=== PATIENT | female | born 1965 | race Caucasian/White ===

== ENCOUNTER 2017-01-09 11:07 | Emergency (ER) | payer SELFPAY ==
[~2017-01-09] VITALS: Ht 172.7 cm; Wt 74.7 kg
[2017-01-09 12:22] LABS: BASOPHIL COUNT 0.1 K/uL (0-0.1); EOSINOPHIL (%) 1.7 % (0-5); EOSINOPHIL COUNT 0.1 K/uL (0-0.3); HEMATOCRIT 42.2 % (36.0-46.0); IMMATURE GRANULOCYTE (%) 0.9 % (0.0-0.7); IMMATURE GRANULOCYTE COUNT 0.1 K/uL; INSTRUMENT ABS NEUTROPHIL CT 4.5 K/uL; LYMPHOCYTE COUNT 1.1 K/uL (1.0-2.8); MCH 28.3 PG (29.0-34.0); MCHC 32.9 G/DL (30.0-36.0); MCV 85.8 FL (83-99); MEAN PLAT.VOLUME 10.4 uM^3 (9.5-12.4); MONOCYTE (%) 8.4 % (3-12); MONOCYTE COUNT 0.5 K/uL (0-0.8); NEUTROPHIL (%) 70.6 % (45-76); NEUTROPHIL COUNT 4.5 K/uL (1.8-6.4); PLATELET COUNT 351 K/uL (156-360); RBC DIS.WIDTH-CV 14.4 % (11.8-14.6); RBC DIS.WIDTH-SD 44.8 % (39-53); RED BLOOD COUNT 4.92 M/uL (3.80-5.20); WHITE BLOOD COUNT 6.4 K/uL (4.1-10.2)
[2017-01-09 12:28] LABS: CHLORIDE 104 mEq/L (99-109); INTER. NORMALIZED RATIO 1.1; POTASSIUM 3.5 mEq/L (3.7-5.4); PROTHROMBIN TIME 11.7 SEC (10.2-12.9); SODIUM 138 mEq/L (136-147)
[2017-01-09 12:30] LABS: GLUCOSE 94 mg/dL (70-99)
[2017-01-09 12:31] LABS: ANION GAP 11 MEQ/L (2-14); PTT 27.6 SEC (25-37)
[2017-01-09 12:32] LABS: TOTAL BILIRUBIN 14.7 mg/dL (0.0-1.0)
[2017-01-09 12:34] LABS: ALKALINE PHOSPHATASE 133 IU/L (3-129); GFR ESTIMATE (CALCULATED) > 59 mL/min/
[2017-01-09 12:35] LABS: UREA NITROGEN (BUN) 8 mg/dL (9-23)
[2017-01-09 12:37] LABS: LIPASE 16 U/L (1.0-51.0)
[2017-01-09 13:21] LABS: ADD MIUA? YES; BILIRUBIN MODERATE; BLOOD MODERATE; COLOR AMBER ((YELLOW)); GLUCOSE (STRIP) NEGATIVE; KETONES 20; LEUKOCYTES SMALL; NITRITE NEGATIVE; PROTEIN (STRIP) 30; SPECIFIC GRAVITY 1.021 (1.000-1.030)
[2017-01-09 13:42] LABS: BACTERIA RARE /HPF; CALCIUM OXALATE CRYSTALS 3+ /HPF; EPITHELIAL CELLS 2+ /HPF; MUCUS 2+ /LPF; WHITE BLOOD CELLS 15-20 /HPF (0-5)
[2017-01-09 14:00] LABS: ICTOTEST POSITIVE
[2017-01-09 14:39] LABS: SERUM ETHYL ALCOHOL < 10 mg/dL
[2017-01-09 14:42] LABS: SALICYLATE < 5.0 MG/DL (15-30)
[2017-01-09 20:59] VITALS: BP 133/88
== END 2017-01-09 22:03 | disposition short-term general hospital (02) ==
LOC: EME 11:07
PROVIDERS: Physician Assistant
DX: R17 Unspecified jaundice (principal); K80.21 Calculus of gallbladder without cholecystitis with obstruction; R74.0 Nonspecific elevation of levels of transaminase and lactic acid dehydrogenase [LDH]
CPT/HCPCS: 74177; 76705; 80053; 80076; 81003; 82248; 83690; 85025; 85610; 85730; 99281; 99285; G0480; J0696; J7050